=== PATIENT | female | born 1960 | race Caucasian/White ===

== ENCOUNTER 2017-02-18 14:24 | Emergency (ER) | payer BC, OTHER ==
[2017-02-18] MEDS ORDERED: Aspirin Low Dose CHEW TAB* 81 MG PO ONE (14:55)
[2017-02-18 15:35] LABS: ALT 15 U/L (7-52); Albumin 4.3 g/dL (3.2-5.2); Alkaline Phosphatase 92 U/L (34-104); Blood Urea Nitrogen 12 mg/dL (6-24); CO2 Carbon Dioxide 29 mmol/L (22-32); Calcium 9.7 mg/dL (8.6-10.3); Chloride 104 mmol/L (101-111); EGFR African American 102.4 (>60); EGFR Non-African American 79.6 (>60); Globulin 3.7 g/dL (2-4); Glucose 88 mg/dL (70-100); Sodium 137 mmol/L (133-145)
[2017-02-18 15:42] LABS: Anion Gap 4 mmol/L (2-11)
--- NOTE | 2017-02-18 15:54 | RAD ---
INDICATION: Chest pain. COMPARISON: Comparison is made with a prior chest x-ray study from March 10, 2016. TECHNIQUE: A portable view of the chest was obtained. FINDINGS: Cardiac and mediastinal contours appear to be within normal limits. There is a couple linear densities at the left lung base consistent with subsegmental atelectasis or scarring. The lungs are otherwise clear. No pleural effusion is seen. IMPRESSION: NO EVIDENCE FOR ACUTE DISEASE.
[2017-02-18 16:55] LABS: Hematocrit 43 % (35-47); Hemoglobin 14.8 g/dl (12.0-16.0); Mean Corpuscular HGB Conc 35 g/dl (31-36); Mean Corpuscular Hemoglobin 32 pg (27-31); Mean Corpuscular Volume 94 fL (80-97); Mean Platelet Volume 9 um3 (7.4-10.4); Red Blood Count 4.58 10^6/ul (4.0-5.4); Red Cell Distribution Width 13 % (10.5-15); White Blood Count 9.2 10^3/ul (3.5-10.8)
--- NOTE | 2017-02-18 18:10 | ED ---
HPI Chest Pain - HPI Summary HPI Summary: Patient presents to the ED with CC of chest pain which radiates to under the breast. This has been present x 3 days. She states she has been lifting objects more recently and doing some extra work, so could be muscular, but wanted to make sure. She states the feeling is an ache, moves across from left side of the chest to the right, is intermittent and worse with position but not worse with exertion or better with rest. The ache has now moved to the right side body around the ribs. Pain is not worse with inspiration, does not radiate and denies other associated symptoms including diaphoresis, SOB, extremity weakness, BHAT, cough, GERD symptoms dizziness. 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 Family hx includes 2 brothers of BHAT at 52 and 54. She has no personal cardiac history. 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 She denies travel, OCP use or known malignancy. She takes medications for her back , but denies others. Pain cannot be reproduced by palpation. Pain is 5/10, intermittent and "deep." - History of Current Complaint Chief Complaint: EDChestPainROMI Time Seen by Provider: 02/18/17 16:17 Hx Obtained From: Patient Onset/Duration: Started Days Ago Timing: Intermittent Initial Severity: Moderate Current Severity: Mild Pain Intensity: 0 Pain Scale Used: 0-10 Numeric Chest Pain Radiates: No Character: Dull/Aching Aggravating Factor(s): Nothing Alleviating Factor(s): Position Associated Signs and Symptoms: Positive: Negative - Risk Factors Pulmonary Embolism Risk Factors: Smoking TAD Risk Factors: Smoking AMI/ACS Risk Factors: Smoking - Allergy/Home Medications Allergies/Adverse Reactions: Allergies Allergy/AdvReac Type Severity Reaction Status Date / Time Morphine Allergy Intermediate Hives Verified 02/18/17 14:25 Amoxicillin [From Augmentin] Allergy GI Upset Verified 02/18/17 14:25 Clavulanic Acid Allergy GI Upset Verified 02/18/17 14:25 [From Augmentin] PMH/Surg Hx/FS Hx/Imm Hx Previously Healthy: Yes Endocrine/Hematology History: Denies: Hx Diabetes Cardiovascular History: Denies: Hx Hypertension, Hx Pacemaker/ICD Respiratory History: Reports: Hx Pneumonia Denies: Other Respiratory Problems/Disorders GI History: Reports: Hx Diverticulosis - Diverticulitits History: Reports: Other Problems/Disorders - incontinence Denies: Hx Renal Disease Musculoskeletal History: Reports: Hx Arthritis, Hx Back Problems, Hx Bursitis, Hx Scoliosis Sensory History: Reports: Hx Contacts or Glasses Denies: Hx Hearing Aid Opthamlomology History: Reports: Hx Contacts or Glasses Neurological History: Reports: Hx Headaches Psychiatric History: Denies: Hx Panic Disorder - Cancer History Hx Chemotherapy: No Hx Radiation Therapy: No - Surgical History Surgery Procedure, Year, and Place: 1975 TONSILS- C SECTIONS-1983 INCISIONAL HERNIA REPAIR-2005 HYSTERECTOMY. 1999 LEFT BREAST CYSTS REMOVED- GALLBLADDER SURGERY 2009 - Immunization History Hx Pertussis Vaccination: No Immunizations Up to Date: Unable to Obtain/Confirm Infectious Disease History: No Infectious Disease History: Reports: Hx of Known/Suspected MRSA Denies: Traveled Outside the in Last 30 Days - Social History Occupation: Employed Full-time Lives: With Family Alcohol Use: None Hx Substance Use: No Substance Use Type: Reports: None Hx Tobacco Use: Yes Smoking Status (MU): Current Every Day Smoker Type: Cigarettes Amount Used/How Often: 1 PPD Have You Smoked in the Last Year: Yes Review of Systems Constitutional: Negative Eyes: Negative ENT: Negative Positive: Chest Pain Respiratory: Negative Gastrointestinal: Negative Positive: no symptoms reported, see HPI Positive: Arthralgia - at baseline Neurological: Negative Psychological: Normal All Other Systems Reviewed And Are Negative: Yes Physical Exam Triage Information Reviewed: Yes Vital Signs On Initial Exam: Initial Vitals Temp Pulse Resp BP Pulse Ox 98.7 F 95 16 144/96 94 02/18/17 14:26 02/18/17 14:26 02/18/17 14:26 02/18/17 14:26 02/18/17 14:26 Vital Signs Reviewed: Yes Appearance: Positive: Well-Appearing, No Pain Distress Skin: Positive: Warm, Skin Color Reflects Adequate Perfusion Head/Face: Positive: Normal Head/Face Inspection Eyes: Positive: EOMI, HALI, Conjunctiva Clear Neck: Positive: Supple, No Lymphadenopathy Respiratory/Lung Sounds: Positive: Rhonchi - patient is a smoker Cardiovascular: Positive: Normal, RRR, Pulses are Symmetrical in both Upper and Lower Extremities Musculoskeletal: Positive: Normal, Strength/ROM Intact Neurological: Positive: Sensory/Motor Intact, Alert, Oriented to Person Place, Time, Speech Normal Psychiatric: Positive: Normal AVPU Assessment: Alert - [place] Coma Scale Coma Scale Total: 15 Diagnostics - Vital Signs Vital Signs Temp Pulse Resp BP Pulse Ox 02/18/17 15:41 98.1 F 65 20 125/75 100 02/18/17 14:26 98.7 F 95 16 144/96 94 - Laboratory Lab Results: Lab Results 02/18/17 02/18/17 02/18/17 Range/Units 15:00 15:00 16:49 WBC (3.5-10.8) 10^3/ul RBC (4.0-5.4) 10^6/ul Hgb (12.0-16.0) g/dl Hct (35-47) % MCV (80-97) fL MCH (27-31) pg MCHC (31-36) g/dl RDW (10.5-15) % Plt Count (150-450) 10^3/ul MPV (7.4-10.4) um3 Neut % (Auto) (38-83) % Lymph % (Auto) (25-47) % [place] % (Auto) (1-9) % Eos % (Auto) (0-6) % Baso % (Auto) (0-2) % Absolute Neuts (auto) (1.5-7.7) 10^3/ul Absolute Lymphs (auto) (1.0-4.8) 10^3/ul Absolute Monos (auto) (0-0.8) 10^3/ul Absolute Eos (auto) (0-0.6) 10^3/ul Absolute Basos (auto) (0-0.2) 10^3/ul Absolute Nucleated RBC 10^3/ul Nucleated RBC % INR (Anticoag Therapy) 0.89 (0.89-1.11) APTT 29.4 (26.0-36.3) seconds Sodium 137 (133-145) mmol/L Potassium TNP Chloride 104 (101-111) mmol/L Carbon Dioxide 29 (22-32) mmol/L Anion Gap 4 (2-11) mmol/L BUN 12 (6-24) mg/dL Creatinine 0.75 (0.51-0.95) mg/dL Est GFR ( Amer) 102.4 (>60) Est GFR (Non-Af Amer) 79.6 (>60) BUN/Creatinine Ratio 16.0 (8-20) Glucose 88 (70-100) mg/dL Lactic Acid 0.6 (0.5-2.0) mmol/L Calcium 9.7 (8.6-10.3) mg/dL Total Bilirubin 0.30 (0.2-1.0) mg/dL AST TNP ALT 15 (7-52) U/L Alkaline Phosphatase 92 (34-104) U/L CK-MB (CK-2) 1.7 (0.6-6.3) ng/mL Myoglobin 23.7 (14.3-65.8) ng/mL Troponin I 0.00 (<0.04) ng/mL Total Protein 8.0 (6.4-8.9) g/dL Albumin 4.3 (3.2-5.2) g/dL Globulin 3.7 (2-4) g/dL Albumin/Globulin Ratio 1.2 (1-3) 02/18/17 02/18/17 Range/Units 16:49 16:49 WBC 9.2 (3.5-10.8) 10^3/ul RBC 4.58 (4.0-5.4) 10^6/ul Hgb 14.8 (12.0-16.0) g/dl Hct 43 (35-47) % MCV 94 (80-97) fL MCH 32 H (27-31) pg MCHC 35 (31-36) g/dl RDW 13 (10.5-15) % Plt Count 244 (150-450) 10^3/ul MPV 9 (7.4-10.4) um3 Neut % (Auto) 55.2 (38-83) % Lymph % (Auto) 31.3 (25-47) % [place] % (Auto) 9.4 H (1-9) % Eos % (Auto) 3.1 (0-6) % Baso % (Auto) 1.0 (0-2) % Absolute Neuts (auto) 5.1 (1.5-7.7) 10^3/ul Absolute Lymphs (auto) 2.9 (1.0-4.8) 10^3/ul Absolute Monos (auto) 0.9 H (0-0.8) 10^3/ul Absolute Eos (auto) 0.3 (0-0.6) 10^3/ul Absolute Basos (auto) 0.1 (0-0.2) 10^3/ul Absolute Nucleated RBC 0 10^3/ul Nucleated RBC % 0 INR (Anticoag Therapy) (0.89-1.11) APTT (26.0-36.3) seconds Sodium (133-145) mmol/L Potassium 3.5 Chloride (101-111) mmol/L Carbon Dioxide (22-32) mmol/L Anion Gap (2-11) mmol/L BUN (6-24) mg/dL Creatinine (0.51-0.95) mg/dL Est GFR ( Amer) (>60) Est GFR (Non-Af Amer) (>60) BUN/Creatinine Ratio (8-20) Glucose (70-100) mg/dL Lactic Acid (0.5-2.0) mmol/L Calcium (8.6-10.3) mg/dL Total Bilirubin (0.2-1.0) mg/dL AST 19 ALT (7-52) U/L Alkaline Phosphatase (34-104) U/L CK-MB (CK-2) (0.6-6.3) ng/mL Myoglobin (14.3-65.8) ng/mL Troponin I (<0.04) ng/mL Total Protein (6.4-8.9) g/dL Albumin (3.2-5.2) g/dL Globulin (2-4) g/dL Albumin/Globulin Ratio (1-3) Result Diagrams: 02/18/17 16:49 02/18/17 16:49 Lab Statement: Any lab studies that have been ordered have been reviewed, and results considered in the medical decision making process. Chest Pain Course/Dx - Course Course Of Treatment: During the course of treatment, EKG, labs, chest xray and 2 serial troponins were obtained. EKG shows no acute findings suggestive of a STEMI/NSTEMI, chest xray shows: IMPRESSION: NO EVIDENCE FOR ACUTE DISEASE. Labs obtained and are WNL. Trop is 0.00. Patient is requesting to leave. After speaking with my attending, Dr. Lozano, we agreed to send home with most likely dx chostochondtritis, but encouraged follow up to PCP for possible need for further evaluation. She is STRONGLY ENCOURAGED to return to the ED for worsening symtoms. Patient agrees. - Chest Pain Differential Diagnosis/HQI/PQRI: Acute NC, ACS, Chest Wall - Diagnoses Provider Diagnoses: Chest pain Discharge - Discharge Plan Condition: Stable Disposition: HOME Patient Education Materials: Chest Pain (ED), Costochondritis (ED) Referrals: Stew Richard MD [Primary Care Provider] - Additional Instructions: Ibuprofen 600mg three times daily for any chest discomfort If symptoms become worse, please return to the ED immediately
[2017-02-18 19:05] VITALS: BP 118/74
== END 2017-02-18 19:08 | disposition home or self-care (01) ==
LOC: ED 14:24
DX: R07.9 Chest pain, unspecified (principal); F17.210 Nicotine dependence, cigarettes, uncomplicated
CPT/HCPCS: 36415; 71010; 80053; 82553; 83605; 83874; 84484; 85025; 85610; 85730; 93005; 99283; A9270-GY

== ENCOUNTER 2017-09-13 09:31 | Emergency (ER) | payer BC, OTHER ==
[2017-09-13 10:13] VITALS: BP 136/84
--- NOTE | 2017-09-13 10:34 | UC ---
Respiratory Complaint HPI - HPI Summary HPI Summary: 57 yo smoker p/w cough with green sputum associated with pleuritic CP x 1 week - History of Current Complaint Chief Complaint: UCRespiratory Stated Complaint: COUGH Time Seen by Provider: 09/13/17 09:48 Hx Obtained From: Patient Onset/Duration: Lasting Days, Still Present Severity Initially: Moderate Severity Currently: Moderate Pain Intensity: 0 - Allergies/Home Medications Allergies/Adverse Reactions: Allergies Allergy/AdvReac Type Severity Reaction Status Date / Time morphine Allergy Intermediate Hives Verified 08/13/17 10:10 amoxicillin [From Augmentin] AdvReac GI Upset Verified 08/13/17 10:10 clavulanic acid AdvReac GI Upset Verified 08/13/17 10:10 [From Augmentin] PMH/Surg Hx/FS Hx/Imm Hx - Additional Past Medical History Additional PMH: smokes 10 cigs per day Previously Healthy: Yes Respiratory History: COPD - Surgical History Surgical History: Yes Surgery Procedure, Year, and Place: 1975 TONSILS- C SECTIONS-1983 INCISIONAL HERNIA REPAIR-2005 HYSTERECTOMY. 1999 LEFT BREAST CYSTS REMOVED- GALLBLADDER SURGERY 2009 - Social History Alcohol Use: None Substance Use Type: Prescribed Substance Use Comment - Amount & Last Used: gabapentin,hydrocodone, soma Smoking Status (MU): Heavy Every Day Tobacco Smoker Type: Cigarettes Amount Used/How Often: 15-18 cigarettes/day Have You Smoked in the Last Year: Yes Household Exposure Type: Cigarettes Review of Systems Constitutional: Chills Skin: Negative Eyes: Negative ENT: Negative Respiratory: Cough Cardiovascular: Negative Gastrointestinal: Negative Genitourinary: Negative Motor: Negative Neurovascular: Negative Musculoskeletal: Negative Neurological: Negative Psychological: Negative All Other Systems Reviewed And Are Negative: Yes Physical Exam Triage Information Reviewed: Yes Appearance: No Pain Distress Vital Signs: Initial Vital Signs Temp 36.3 C 09/13/17 10:03 Pulse 100 09/13/17 10:03 Resp 18 09/13/17 10:03 BP 136/84 09/13/17 10:03 Pulse Ox 93 09/13/17 10:03 Eye Exam: Normal ENT Exam: Normal Dental Exam: Normal Neck exam: Normal Neck: Positive: 1 Respiratory: Positive: Rhonchi, Wheezing - expiratory wheezing Cardiovascular Exam: Normal Abdominal Exam: Normal Musculoskeletal Exam: Normal Neurological Exam: Normal Psychological Exam: Normal Skin Exam: Normal UC Diagnostic Evaluation - Laboratory O2 Sat by Pulse Oximetry: 93 Respiratory Course/Dx - Differential Dx/Diagnosis Differential Diagnosis/HQI/PQRI: Bronchitis, Exacerbation Of COPD Provider Diagnoses: acute bronchitis. COPD exacerabation Discharge - Discharge Plan Condition: Stable Disposition: HOME Prescriptions: Azithromycin TAB* [Zithromax TAB (Z-JOSR) 250 mg #6 tabs] 2 tab PO .TODAY, THEN 1 DAILY #1 josr Guaifenesin/Dextromethorphan [Mucinex Dm ER 600-30 mg Tablet] 1 each PO BID 10 Days #20 tab.er.12h predniSONE TAB* [Deltasone TAB*] 20 mg PO DAILY 5 Days #5 tab Patient Education Materials: Acute Bronchitis (ED) Referrals: Stew Richard MD [Primary Care Provider] - Additional Instructions: take medications as directed
== END 2017-09-13 10:36 | disposition home or self-care (01) ==
LOC: UCEAST 09:31
DX: J44.1 Chronic obstructive pulmonary disease with (acute) exacerbation (principal); Z88.1 Allergy status to other antibiotic agents; Z88.5 Allergy status to narcotic agent; F17.210 Nicotine dependence, cigarettes, uncomplicated
CPT/HCPCS: 99212; G0463

== ENCOUNTER 2018-08-23 19:26 | Emergency (ER) | payer MEDICARE, OTHER ==
--- NOTE | 2018-08-23 20:29 | UC ---
Headache HPI - HPI Summary HPI Summary: 58 yo female presents with fatigue, cough, and sinus headache for the last 2-3 days. She tells me that she is a heavy smoker and has been for many years, but over the last 2 days has only had 3 cigarettes due to her illness. She has felt like she is wheezing and unable to get a good deep breath. Has felt feverish, but has not taken her temperature. Has not taken anything OTC for her symptoms. Denies body aches, sore throat, chest pain, abdominal pain. - History Of Current Complaint Stated Complaint: HEADACHE Time Seen by Provider: 08/23/18 20:28 Hx Obtained From: Patient Onset/Duration: Gradual Onset - Allergies/Home Medications Allergies/Adverse Reactions: Allergies Allergy/AdvReac Type Severity Reaction Status Date / Time morphine Allergy Intermediate Hives Verified 08/23/18 20:34 amoxicillin [From Augmentin] AdvReac GI Upset Verified 08/23/18 20:34 clavulanic acid AdvReac GI Upset Verified 08/23/18 20:34 [From Augmentin] PMH/Surg Hx/FS Hx/Imm Hx - Additional Past Medical History Additional PMH: Chronic back pain - Surgical History Surgical History: Yes Surgery Procedure, Year, and Place: 1975 TONSILS-1978/1980 C SECTIONS-1983 INCISIONAL HERNIA REPAIR-2005 HYSTERECTOMY. 1999 LEFT BREAST CYSTS REMOVED- GALLBLADDER SURGERY 2009 - Family History Known Family History: Positive: Unknown - Social History Lives: With Family Alcohol Use: None Substance Use Type: None Substance Use Comment - Amount & Last Used: gabapentin,hydrocodone, soma Smoking Status (MU): Current Every Day Smoker Type: Cigarettes Amount Used/How Often: 1/2 PPD Have You Smoked in the Last Year: Yes Household Exposure Type: Cigarettes Review of Systems All Other Systems Reviewed And Are Negative: Yes Constitutional: Positive: Fever Skin: Positive: Negative Eyes: Positive: Negative ENT: Positive: Ear Ache, Sinus Congestion, Sinus Pain/Tenderness Respiratory: Positive: Cough Cardiovascular: Positive: Negative Gastrointestinal: Positive: Negative Neurovascular: Positive: Negative Musculoskeletal: Positive: Negative Neurological: Positive: Headache Psychological: Positive: Negative Physical Exam - Summary Physical Exam Summary: GENERAL: NAD. WDWN. No pain distress. SKIN: No rashes, sores, lesions, or open wounds. HEENT: Head: AT/NC Eyes: EOM intact. Conjunctiva clear without inflammation or discharge. Ears: Hearing grossly normal. TMs intact, no bulging, erythema, or edema. Nose: Nasal mucosa mildly swollen and erythematous. No discharge. TTP maxillary and frontal sinus. Positive post nasal drip Throat: Posterior oropharynx without exudates, erythema, or tonsillar enlargement. Uvula midline. NECK: Supple. Nontender. No lymphadenopathy. CHEST: Moderate wheezing throughout. No r/r. No accessory muscle use. Breathing comfortably and in no distress. CV: RRR. Without m/r/g. Pulses intact. NEURO: Alert. PSYCH: Age appropriate behavior. Triage Information Reviewed: Yes Vital Signs: Vital Signs: Temp Pulse Resp BP Pulse Ox 99.6 F 115 18 164/85 93 08/23/18 20:27 08/23/18 20:27 08/23/18 20:27 08/23/18 20:27 08/23/18 20:27 Laboratory Tests 08/23/18 20:42 Influenza A (Rapid) Negative Influenza B (Rapid) Negative Vital Signs Reviewed: Yes Headache Course/Dx - Course Course Of Treatment: CXR: No radiologist reading after 1800, therefore wet read by myself is negative for PNA. Duoneb: Pt feels mild improvement and easier to take a deep breath. Less wheezing on exam. Suspect sinusitis and bronchitis. - Differential Dx/Diagnosis Provider Diagnosis: Sinusitis, Bronchitis Discharge - Sign-Out/Discharge Documenting (check all that apply): Patient Departure All imaging exams completed and their final reports reviewed: No - Discharge Plan Condition: Stable Disposition: HOME Prescriptions: Albuterol HFA INHALER* [Ventolin HFA Inhaler*] 1 puff INH Q6H PRN #1 mdi PRN Reason: Wheezing Benzonatate CAP* [Tessalon 100 MG CAP*] 100 mg PO TID PRN #21 cap PRN Reason: Cough DOXYcycline CAP(*) [DOXYcycline 100MG CAP(*)] 100 mg PO BID #14 cap predniSONE TAB* [Deltasone 20 MG TAB*] 40 mg PO DAILY #10 tab Patient Education Materials: Sinusitis (ED), Acute Bronchitis (ED) Referrals: Stew Richard MD [Primary Care Provider] - Additional Instructions: If you develop a fever, shortness of breath, chest pain, new or worsening symptoms - please call your PCP or go to the ED. Your blood pressure was high at todays visit. Please see your primary provider within 4 weeks for recheck and re-evaluation. - Billing Disposition and Condition Condition: STABLE Disposition: Home
[2018-08-23 20:34] VITALS: BP 164/85
[2018-08-23] MEDS ORDERED: Albuterol/Ipratropium NEB.SOL* Albuterol 2.5 MG/Ipratropium 0.5 MG 3 ML INH ONE (20:42)
[2018-08-23 20:54] LABS: Influenza A Molecular NEGATIVE (Negative); Influenza B Molecular NEGATIVE (Negative)
[2018-08-23] MEDS ORDERED: DOXYcycline CAP(*) 100 MG PO ONE (21:19)
--- NOTE | 2018-08-24 08:36 | UC ---
- EKG/XRAY/CT XRAY: chest - No acute finding Course/Dx - Diagnoses Provider Diagnoses: Sinusitis, Bronchitis Discharge - Sign-Out/Discharge Documenting (check all that apply): Post-Discharge Follow Up All imaging exams completed and their final reports reviewed: Yes - Discharge Plan Condition: Stable Disposition: HOME Prescriptions: Albuterol HFA INHALER* [Ventolin HFA Inhaler*] 1 puff INH Q6H PRN #1 mdi PRN Reason: Wheezing Benzonatate CAP* [Tessalon 100 MG CAP*] 100 mg PO TID PRN #21 cap PRN Reason: Cough DOXYcycline CAP(*) [DOXYcycline 100MG CAP(*)] 100 mg PO BID #14 cap predniSONE TAB* [Deltasone 20 MG TAB*] 40 mg PO DAILY #10 tab Patient Education Materials: Sinusitis (ED), Acute Bronchitis (ED) Referrals: Stew Richard MD [Primary Care Provider] - Additional Instructions: If you develop a fever, shortness of breath, chest pain, new or worsening symptoms - please call your PCP or go to the ED. Your blood pressure was high at todays visit. Please see your primary provider within 4 weeks for recheck and re-evaluation. - Billing Disposition and Condition Condition: STABLE Disposition: Home
== END 2018-08-23 21:30 | disposition home or self-care (01) ==
LOC: UCEAST 19:26
DX: J32.9 Chronic sinusitis, unspecified (principal); J40 Bronchitis, not specified as acute or chronic; F17.210 Nicotine dependence, cigarettes, uncomplicated; Z88.5 Allergy status to narcotic agent; Z88.0 Allergy status to penicillin; Z88.1 Allergy status to other antibiotic agents
CPT/HCPCS: 71046; 99212; A9270-GY; G0463

== ENCOUNTER 2018-09-24 20:18 | Emergency (ER) | payer MEDICARE ==
[2018-09-24 20:39] VITALS: BP 142/96
[2018-09-24] MEDS ORDERED: Ibuprofen TAB* 600 MG PO ONE (21:14)
--- NOTE | 2018-09-24 21:15 | UC ---
Headache HPI - HPI Summary HPI Summary: 58-year-old woman comes in with chief complaint of right-sided headache. She woke with the middle night with the headache. It's right-sided to include the right side of the neck. She hears and feels crackling in her right ear. She had similar symptoms about a month ago but there were bilateral and she was treated for a sinus infection and she improved. She has a history of migraines but she has not suffered from any migraines for years. This seems different than her migraines that she remembers. No fevers or chills. No runny nose. No cough or chest congestion. She takes hydrocodone for chronic pain and that did help some with the headache. No weakness or numbness no difficulty with vision or speech. - History Of Current Complaint Chief Complaint: UCRespiratory Stated Complaint: HEADACHE, CRACKLING IN EARS, AND NECK PAIN Time Seen by Provider: 09/24/18 20:23 Pain Intensity: 9 - Allergies/Home Medications Allergies/Adverse Reactions: Allergies Allergy/AdvReac Type Severity Reaction Status Date / Time morphine Allergy Intermediate Hives Verified 09/24/18 20:39 amoxicillin [From Augmentin] AdvReac GI Upset Verified 09/24/18 20:39 clavulanic acid AdvReac GI Upset Verified 09/24/18 20:39 [From Augmentin] Home Medications: Home Medications Guaifen/Phenyleph/Acetaminophn [Mucinex Sinus-Max Severe Cplt] 2 each PO PRN [History] Sinus Med* PRN 09/24/18 [History] PMH/Surg Hx/FS Hx/Imm Hx Previously Healthy: Yes Neurological History: Migraine - Surgical History Surgical History: Yes Surgery Procedure, Year, and Place: 1975 TONSILS-1978/1980 C SECTIONS-1983 INCISIONAL HERNIA REPAIR-2005 HYSTERECTOMY. 1999 LEFT BREAST CYSTS REMOVED- GALLBLADDER SURGERY 2009 - Family History Known Family History: Positive: Unknown - Social History Alcohol Use: None Substance Use Type: None Substance Use Comment - Amount & Last Used: gabapentin,hydrocodone, soma Smoking Status (MU): Current Every Day Smoker Type: Cigarettes Amount Used/How Often: 1 PPD Have You Smoked in the Last Year: Yes Household Exposure Type: Cigarettes Review of Systems All Other Systems Reviewed And Are Negative: Yes Constitutional: Positive: Negative Skin: Positive: Negative. Negative: Rash Eyes: Positive: Negative. Negative: Photophobia ENT: Positive: Ear Ache Respiratory: Positive: Negative Cardiovascular: Positive: Negative Gastrointestinal: Positive: Negative. Negative: Nausea Motor: Positive: Negative Neurovascular: Positive: Negative Musculoskeletal: Positive: Negative Neurological: Positive: Headache. Negative: Weakness Psychological: Positive: Negative Is Patient Immunocompromised?: No Physical Exam Triage Information Reviewed: Yes Appearance: Well-Appearing, Well-Nourished, Pain Distress - MILD Vital Signs: Initial Vital Signs Temp 98.3 F 09/24/18 20:34 Pulse 91 09/24/18 20:34 Resp 16 09/24/18 20:34 BP 142/96 09/24/18 20:34 Pulse Ox 96 09/24/18 20:34 Vital Signs Reviewed: Yes Eye Exam: Normal Eyes: Positive: Conjunctiva Clear ENT: Positive: Pharynx normal, TMs normal Neck: Positive: Supple, Other: - MILD TENDERNESS RT NECK INFERIOR TO LEFT EAR Respiratory: Positive: Lungs clear, Normal breath sounds, No respiratory distress Cardiovascular: Positive: RRR Musculoskeletal Exam: Normal Musculoskeletal: Positive: Strength Intact, ROM Intact Neurological Exam: Normal Neurological: Positive: Alert, Muscle Tone Normal Psychological Exam: Normal Psychological: Positive: Normal Response To Family, Age Appropriate Behavior Skin Exam: Normal Headache Course/Dx - Course Course Of Treatment: Patient Name: RUTH CHÁVEZ Medical Record#: [id number] Ordering Physician: Ron Lozano MD Acct.#: [id number] : 1960 Age: 58 Sex: F Location: [facility] Exam Date: 09/24/182048 ADM Status: REG ER Order Information: CT BRAIN WO Accession Number: [id number] CPT: 63046 EXAM: CT Head Without Contrast EXAM DATE/TIME: 09/24/2018 9:00 PM CLINICAL HISTORY: 58 years old, female; Pain; Headache; Other: Right sided sinus headache; Patient HX: Chronic sinus headaches. Severe right sided headache today with eye pain and crackeling in ear. ; Additional info: Right sided BHAT TECHNIQUE: Imaging protocol: Axial computed tomography images of the head/brain without contrast. Radiation optimization: All CT scans at this facility use at least one of these dose optimization techniques: automated exposure control; mA and/or kV adjustment per patient size (includes targeted exams where dose is matched to clinical indication); or iterative reconstruction. COMPARISON: BRAIN WO CT BRAIN WO 07/06/2014 9:57 PM FINDINGS: Brain: Normal. No hemorrhage. No significant white matter disease. No edema. Ventricles: Normal. No ventriculomegaly. Bones/joints: Unremarkable. No acute fracture. Sinuses: Visualized sinuses are unremarkable. No acute sinusitis. Mastoid air cells: Visualized mastoid air cells are unremarkable. No mastoid effusion. Soft tissues: Unremarkable. IMPRESSION: 1. No acute intracranial abnormality. 2. No change from the comparison study. To contact [facility] with a general question: [facility] - [phone] For direct physician to physician contact: Physician Hotline - [phone] [facility] [place] ([facility] Facility ID #[id number]) <Electronically signed by Jose Miguel Glez MD in OV> 09/24/182139 I discussed the CT report with the patient. I sent the patient had similar symptoms she was treated with doxycycline and prednisone. She got better with that treatment. We'll go ahead with the same treatment and have her follow-up with primary care doctor. I discussed with her and he got worse fevers chills weakness numbness difficulty with speech or vision she should go to the emergency department. - Differential Dx/Diagnosis Provider Diagnosis: Headache Discharge - Sign-Out/Discharge Documenting (check all that apply): Patient Departure All imaging exams completed and their final reports reviewed: Yes - Discharge Plan Condition: Stable Disposition: HOME Prescriptions: DOXYcycline CAP(*) [DOXYcycline 100MG CAP(*)] 100 mg PO BID #18 cap predniSONE TAB* [Deltasone 20 MG TAB*] 40 mg PO DAILY #8 tab Patient Education Materials: Acute Headache (ED) Referrals: Stew Richard MD [Primary Care Provider] - Additional Instructions: FOLLOW UP WITH YOUR DOCTOR. GET REEVALUATED SOONER IF YOUR CONDITION WORSENS; PAIN, WEAKNESS, NUMBNESS, DIFFICULTY WITH VISION OR SPEECH OR ANY QUESTIONS OR CONCERNS. - Billing Disposition and Condition Condition: STABLE Disposition: Home
[2018-09-24] MEDS ORDERED: DOXYcycline CAP(*) 100 MG PO ONE ×2 (22:05→22:21)
[2018-09-24] MEDS ORDERED: predniSONE TAB* 20 MG PO ONE (22:06)
== END 2018-09-24 22:29 | disposition home or self-care (01) ==
LOC: UCEAST 20:18
DX: R51 Headache (principal); F17.210 Nicotine dependence, cigarettes, uncomplicated; Z88.5 Allergy status to narcotic agent; Z88.3 Allergy status to other anti-infective agents
CPT/HCPCS: 70450; 99213; A9270-GY; G0463; J7512